=== PATIENT | female | born 2000 | race Caucasian/White ===

== ENCOUNTER → 2022-05-05 11:13 | Outpatient (CLI) | payer OTHER, SELFPAY ==
[2022-05-05 12:40] LABS: Add Manual Diff / Slide Review NO; Basophils Absolute Auto 100 /uL (0-100); Eosinophils Absolute Auto 300 /uL (0-450); Eosinophils Percent Auto 8.8 % (2-4); Hematocrit 36.7 % (36-46); Hemoglobin 12.2 g/dL (12.0-16.0); Lymphocytes Absolute Auto 1000 /uL (1100-4500); Lymphocytes Percent Auto 28.7 % (25-40); Mean Corpuscular HGB Conc 33.3 % (30-36); Mean Corpuscular Hemoglobin 29.1 PG (26-34); Mean Corpuscular Volume 87.5 fL (80-100); Monocytes Absolute Auto 300 /uL (0-900); Monocytes Percent Auto 8.1 % (3-14); Neutrophils Absolute Auto 1800 /uL (1500-7000); Neutrophils Percent Auto 52.4 % (50-75); Platelet Count 246 X10^3/uL (150-400); Red Cell Distribution Width 15.7 % (11.6-14.8); White Blood Cell Count 3.5 X10^3/uL (4.5-11.0)
[2022-05-05 13:00] LABS: Iron 39 ug/dL (37-170)
[2022-05-05 13:31] LABS: Ferritin 6 ng/mL (6-137)
[2022-05-05 13:46] LABS: Vitamin B12 681 pg/mL (239-931)
[2022-05-05 15:12] LABS: Vitamin D 25 Hydroxy (D3) 34.4 ng/mL (30.0-100.0)
== END ==
PROVIDERS: PCP Family Medicine; Referring Provider Family Medicine; Visit Provider Family Medicine
DX: R79.0 Abnormal level of blood mineral (principal)
CPT/HCPCS: 36415; 82306; 82607; 82728; 83540; 85025

== ENCOUNTER → 2022-12-12 10:57 | Outpatient (CLI) | payer OTHER, SELFPAY | PROVIDERS: PCP Family Medicine; Visit Provider Student in an Organized Health Care Education/Training Program | DX: N39.0 Urinary tract infection, site not specified (principal); R30.0 Dysuria | CPT/HCPCS: 87077; 87086; 87186; 87210 ==

== ENCOUNTER → 2023-01-20 15:18 | Outpatient (CLI) | payer OTHER, SELFPAY ==
[2023-01-20 17:45] LABS: Add Manual Diff / Slide Review NO; Basophils Absolute Auto 0 /uL (0-100); Basophils Percent Auto 0.7 % (0-2); Eosinophils Absolute Auto 300 /uL (0-450); Eosinophils Percent Auto 5.3 % (2-4); Hematocrit 37.2 % (36-46); Hemoglobin 12.8 g/dL (12.0-16.0); Lymphocytes Absolute Auto 1300 /uL (1100-4500); Lymphocytes Percent Auto 26.2 % (25-40); Mean Corpuscular HGB Conc 34.4 % (30-36); Mean Corpuscular Hemoglobin 31.7 PG (26-34); Mean Corpuscular Volume 92.1 fL (80-100); Monocytes Absolute Auto 300 /uL (0-900); Monocytes Percent Auto 7.1 % (3-14); Neutrophils Absolute Auto 2900 /uL (1500-7000); Neutrophils Percent Auto 60.7 % (50-75); Platelet Count 221 X10^3/uL (150-400); Red Blood Cell Count 4.03 X10^6/uL (4.0-5.2); Red Cell Distribution Width 12.8 % (11.6-14.8); White Blood Cell Count 4.8 X10^3/uL (4.5-11.0)
[2023-01-20 18:15] LABS: Alanine Aminotransferase 11 IU/L (<35); Albumin 4.1 g/dL (3.5-5.0); Albumin Globulin Ratio 1.4 (1.0-2.8); Alkaline Phosphatase 59 U/L (38-126); Aspartate Aminotransferase 19 IU/L (14-36); BUN Creatinine Ratio 22.6 (6-22); Bilirubin Total 0.6 mg/dL (0.2-1.3); Blood Urea Nitrogen 12 mg/dL (7-17); Calcium 9.7 mg/dL (8.4-10.2); Carbon Dioxide 29 mmol/L (22-32); Chloride 105 mmol/L (98-107); Estimated Glomerular Filt Rate > 60 mL/min (>60); Globulin 2.9 g/dL (1.7-4.1); Glucose 97 mg/dL (70-100); HEMOLYSIS < 15 (0-50); Potassium 3.7 mmol/L (3.4-5.1); Sodium 139 mmol/L (137-145)
[2023-01-20 18:26] LABS: Vitamin D 25 Hydroxy (D3) 29.9 ng/mL (30.0-100.0)
[2023-01-20 18:38] LABS: Thyroid Stimulating Hormone 0.344 uIU/mL (0.47-4.68)
[2023-01-20 18:48] LABS: Ferritin 14 ng/mL (6-137)
[2023-01-20 19:19] LABS: Folate 4.7 ng/mL (2.76-20.0); Vitamin B12 447 pg/mL (239-931)
[2023-01-22 16:16] LABS: Tissue Transglutaminase IgG 4 U/mL (0-5)
[2023-01-23 10:19] LABS: Free T4, Direct Thyroxine 1.26 ng/dL (0.78-2.19)
== END ==
PROVIDERS: PCP Family Medicine; Referring Provider Family Medicine; Visit Provider Family Medicine
DX: Z00.00 Encounter for general adult medical examination without abnormal findings (principal); K90.0 Celiac disease; D50.9 Iron deficiency anemia, unspecified
CPT/HCPCS: 36415; 80053; 82306; 82607; 82728; 82746; 83516; 84439; 84443; 85025

== ENCOUNTER → 2023-10-27 14:55 | Outpatient (CLI) | payer OTHER, SELFPAY ==
[2023-10-27 16:46] LABS: Add Manual Diff / Slide Review NO; Basophils Absolute Auto 0 /uL (0-100); Basophils Percent Auto 0.8 % (0-2); Eosinophils Absolute Auto 200 /uL (0-450); Hematocrit 37.6 % (36-46); Hemoglobin 12.7 g/dL (12.0-16.0); Lymphocytes Absolute Auto 1400 /uL (1100-4500); Mean Corpuscular HGB Conc 33.8 % (30-36); Mean Corpuscular Hemoglobin 30.9 PG (26-34); Mean Corpuscular Volume 91.5 fL (80-100); Monocytes Absolute Auto 400 /uL (0-900); Monocytes Percent Auto 7.1 % (3-14); Neutrophils Absolute Auto 3500 /uL (1500-7000); Neutrophils Percent Auto 63.1 % (50-75); Platelet Count 232 X10^3/uL (150-400); Red Blood Cell Count 4.11 X10^6/uL (4.0-5.2); Red Cell Distribution Width 13.5 % (11.6-14.8); White Blood Cell Count 5.6 X10^3/uL (4.5-11.0)
[2023-10-27 16:53] LABS: Alanine Aminotransferase 11 IU/L (<35); Albumin 4.2 g/dL (3.5-5.0); Albumin Globulin Ratio 1.4 (1.0-2.8); Alkaline Phosphatase 55 U/L (38-126); Aspartate Aminotransferase 26 IU/L (14-36); BUN Creatinine Ratio 16.4 (6-22); Bilirubin Total 0.9 mg/dL (0.2-1.3); Blood Urea Nitrogen 11 mg/dL (7-17); Calcium 10.3 mg/dL (8.4-10.2); Carbon Dioxide 25 mmol/L (22-32); Chloride 104 mmol/L (98-107); Estimated Glomerular Filt Rate > 60 mL/min (>60); Glucose 85 mg/dL (70-100); HEMOLYSIS < 15 (0-50); Potassium 4.3 mmol/L (3.4-5.1); Sodium 135 mmol/L (137-145); Total Protein 7.2 g/dL (6.3-8.2)
[2023-10-27 17:09] LABS: Free T4, Direct Thyroxine 1.05 ng/dL (0.78-2.19)
[2023-10-27 17:23] LABS: Thyroid Stimulating Hormone 0.916 uIU/mL (0.47-4.68)
[2023-10-27 17:25] LABS: Ferritin 8 ng/mL (6-137)
[2023-10-27 17:38] LABS: Vitamin D 25 Hydroxy (D3) 33.3 ng/mL (30.0-100.0)
== END ==
PROVIDERS: PCP Family Medicine; Referring Provider Family Medicine; Visit Provider Family Medicine
DX: R94.6 Abnormal results of thyroid function studies (principal); K90.0 Celiac disease; Z86.2 Personal history of diseases of the blood and blood-forming organs and certain disorders involving the immune mechanism; R11.0 Nausea; E55.9 Vitamin D deficiency, unspecified
CPT/HCPCS: 36415; 80053; 82306; 82728; 84439; 84443; 85025

== ENCOUNTER → 2023-11-08 14:42 | Outpatient (CLI) | payer OTHER, SELFPAY ==
[2023-11-08 16:20] LABS: Urine N gonorrhoeae NOT DETECTED
[2023-11-08 16:25] LABS: Urine Chlamydia NOT DETECTED
== END ==
PROVIDERS: PCP Family Medicine; Visit Provider Registered Nurse
DX: L29.9 Pruritus, unspecified (principal); N94.9 Unspecified condition associated with female genital organs and menstrual cycle; N89.8 Other specified noninflammatory disorders of vagina
CPT/HCPCS: 87210; 87491; 87591

== ENCOUNTER → 2024-10-10 11:00 | Outpatient (CLI) | payer OTHER, SELFPAY ==
[2024-10-10 12:37] LABS: Urine Chlamydia NOT DETECTED; Urine N gonorrhoeae NOT DETECTED
== END ==
PROVIDERS: PCP Family Medicine; Visit Provider Physician Assistant Medical
DX: N93.9 Abnormal uterine and vaginal bleeding, unspecified (principal); N76.0 Acute vaginitis
CPT/HCPCS: 87210; 87491; 87591

== ENCOUNTER → 2025-02-14 12:13 | Outpatient (CLI) | payer OTHER, SELFPAY ==
[2025-02-14 13:16] LABS: Add Manual Diff / Slide Review NO; Basophils Absolute Auto 0 /uL (0-100); Basophils Percent Auto 0.3 % (0-2); Eosinophils Absolute Auto 100 /uL (0-450); Eosinophils Percent Auto 2.3 % (2-4); Hematocrit 39.2 % (36-46); Hemoglobin 13.2 g/dL (12.0-16.0); Lymphocytes Absolute Auto 1500 /uL (1100-4500); Lymphocytes Percent Auto 32.2 % (25-40); Mean Corpuscular HGB Conc 33.7 % (30-36); Mean Corpuscular Hemoglobin 31.3 PG (26-34); Mean Corpuscular Volume 92.8 fL (80-100); Monocytes Absolute Auto 400 /uL (0-900); Monocytes Percent Auto 9.4 % (3-14); Neutrophils Absolute Auto 2600 /uL (1500-7000); Neutrophils Percent Auto 55.8 % (50-75); Platelet Count 224 X10^3/uL (150-400); Red Blood Cell Count 4.22 X10^6/uL (4.0-5.2); Red Cell Distribution Width 13.3 % (11.6-14.8); White Blood Cell Count 4.7 X10^3/uL (4.5-11.0)
[2025-02-14 13:30] LABS: HEMOLYSIS < 15 (0-50); Iron 107 ug/dL (37-170)
[2025-02-14 13:31] LABS: Alanine Aminotransferase 14 IU/L (<35); Albumin 4.4 g/dL (3.5-5.0); Albumin Globulin Ratio 1.7 (1.0-2.8); Alkaline Phosphatase 49 U/L (38-126); Aspartate Aminotransferase 24 IU/L (14-36); BUN Creatinine Ratio 15.3 (6-22); Bilirubin Total 0.8 mg/dL (0.2-1.3); Blood Urea Nitrogen 11 mg/dL (7-17); Calcium 10.6 mg/dL (8.4-10.2); Carbon Dioxide 25 mmol/L (22-32); Chloride 105 mmol/L (98-107); Estimated Glomerular Filt Rate > 60 mL/min (>60); Globulin 2.6 g/dL (1.7-4.1); Glucose 93 mg/dL (70-100); HEMOLYSIS < 15 (0-50); Potassium 4.5 mmol/L (3.4-5.1); Sodium 138 mmol/L (137-145)
[2025-02-14 13:41] LABS: Percent Iron Saturation 33 % (15-50); Total Iron Binding Capacity 324 ug/dL (265-497); Transferrin 246 mg/dL (206-381)
[2025-02-14 14:09] LABS: Ferritin 12 ng/mL (6-137)
[2025-02-14 14:41] LABS: Vitamin B12 487 pg/mL (239-931)
== END ==
PROVIDERS: PCP Student in an Organized Health Care Education/Training Program; Referring Provider Student in an Organized Health Care Education/Training Program; Visit Provider Student in an Organized Health Care Education/Training Program
DX: K90.0 Celiac disease (principal); Z13.29 Encounter for screening for other suspected endocrine disorder
CPT/HCPCS: 36415; 80053; 82306; 82607; 82728; 82746; 83540; 83550; 84443; 85025

== ENCOUNTER → 2025-04-25 08:16 | Outpatient (CLI) | payer OTHER, SELFPAY ==
--- NOTE | 2025-04-25 08:18 | DI.US.S_ITS ---
US breast BI limited: 04/25/2025. BI-RADS: 3 CLINICAL: 25-year old female for bilateral diagnostic breast ultrasound. Tyrer- Cuzick lifetime risk of 13.6%. No personal or first-degree family history of breast cancer. The patient reports a palpable abnormality (more than 2 years) in both breasts. The patient had a prior left breast biopsy. PRIOR EXAMS No prior examinations available. ULTRASOUND TECHNIQUE Real-time keita scale and color doppler imaging of the area of clinical interest was performed with image documentation. ULTRASOUND FINDINGS Right: Outer at 9:00, 4 cm from nipple, measuring 1 x 0.9 x 1.1 cm: Correlating with palpable lump there is an oval, circumscribed, hypoechoic mass that is parallel showing posterior acoustic enhancement. This is likely a fibroadenoma. Right: Upper Outer at 10:00, 8.0 cm from nipple, measuring 1.5 x 0.9 x 0.5 cm: Correlating with palpable lump there is an oval, circumscribed, hypoechoic mass that is parallel showing posterior acoustic enhancement. This is likely a fibroadenoma. Left: Outer at 3:00, 8 cm from nipple, measuring 0.4 x 0.4 x 0.4 cm: Correlating with palpable lump there is a complicated cyst showing posterior acoustic enhancement. Left: Inner at 9:00, 4 cm from nipple, measuring 1 x 0.6 x 1.1 cm: Correlating with palpable lump there is an oval, circumscribed, hypoechoic mass that is parallel showing posterior acoustic enhancement. This is likely a fibroadenoma. Left: Upper Inner at 10:00, 7 cm from nipple, measuring 1.7 x 0.6 x 1.2 cm: Correlating with palpable lump there is an oval, circumscribed, hypoechoic mass that is parallel showing posterior acoustic enhancement. This is likely a fibroadenoma. Left: Lower Outer at 4:00, 8.0 cm from nipple, measuring 0.2 x 0.5 x 1.2 cm: There is an oval, circumscribed, hypoechoic mass showing posterior acoustic enhancement. 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 Biopsy clip is seen with the mass. IMPRESSION: Right (Mass): Outer at 9:00, 4 cm from nipple, measuring 1 x 0.9 x 1.1 cm * Probably Benign. Right (Mass): Upper Outer at 10:00, 8.0 cm from nipple, measuring 1.5 x 0.9 x 0.5 cm * Probably Benign. Left (Complicated Cyst): Outer at 3:00, 8 cm from nipple, measuring 0.4 x 0.4 x 0.4 cm * Probably Benign. Left (Mass): Inner at 9:00, 4 cm from nipple, measuring 1 x 0.6 x 1.1 cm * Probably Benign. Left (Mass): Upper Inner at 10:00, 7 cm from nipple, measuring 1.7 x 0.6 x 1.2 cm * Probably Benign. RECOMMENDATIONS Bilateral * Six month followup with diagnostic ultrasound. COMMENTS: Findings and recommendations were conveyed to the patient during today's evaluation. OVERALL ASSESSMENT CATEGORY BI-RADS-3: Probably Benign. ELECTRONICALLY SIGNED: Beatriz Weiner M.D. on 04/25/2025 at 05:05:18 PM PT Interpreting Station ID: [id number]
== END ==
PROVIDERS: PCP Student in an Organized Health Care Education/Training Program; Referring Provider Student in an Organized Health Care Education/Training Program; Visit Provider Student in an Organized Health Care Education/Training Program
DX: R92.8 Other abnormal and inconclusive findings on diagnostic imaging of breast (principal); D24.9 Benign neoplasm of unspecified breast; N63.11 Unspecified lump in the right breast, upper outer quadrant; N63.22 Unspecified lump in the left breast, upper inner quadrant; N60.02 Solitary cyst of left breast
CPT/HCPCS: 76642

== ENCOUNTER 2025-10-10 11:22 | Emergency (ER) | payer OTHER, SELFPAY ==
[2025-10-10 11:30] VITALS: BP 131/86; PULSE 62; RESP 12; TEMP 36.4; O2SAT 99; BMI 18.8
[2025-10-10] MEDS: FAMOTIDINE 20 MG TABLET 40 MG PO (11:38)
[2025-10-10] MEDS: ONDANSETRON 4 MG ODT SL (11:38)
[2025-10-10] MEDS: MAG HYDROX/ALUMINUM/SIMETH SUS 30 ML, LIDOCAINE VISCOUS 2% 15 ML PO (11:40)
[2025-10-10 13:38] VITALS: BP 111/80; PULSE 53; RESP 16; O2SAT 100
--- NOTE | 2025-10-10 13:55 | ED_ITS ---
HPI - Nausea/Vomiting/Diarrhea <Man Coker PA-C - Last Filed: 10/17/25 19:45> General Chief complaint: Nausea/Vomiting/Diarrhea Stated complaint: Anxiety, Not really eating , Dizzy Time Seen by Provider: 10/10/25 11:29 Source: patient Mode of arrival: Ambulatory History of Present Illness HPI Narrative: 25-year-old female with past medical history celiac disease presents to the ED with extreme loss of appetite, nausea for the past 5 days. Patient states that she has had such episodes prior to this where she experiences complete loss of appetite, however it has not been as long as 5 days. Patient has some anxiety around gluten containing foods due to her celiac diagnosis. She avoids such foods. Patient does endorse some mild stresses at work. It appears that patient does have a history of anxiety, for which she has not been medically evaluated yet. Patient states that she does not like the idea of having to take medications for depression or anxiety, which is why she avoids medical consultation. Patient denies having any concerns about her weight, is not actively trying to lose weight. No suicidal ideation, homicidal ideation. Related Data Home Medications ?Medication ?Instructions ?Recorded ?Confirmed No Known Home Medications 04/07/25 0508/24 Allergies Allergy/AdvReac Type Severity Reaction Status Date / Time Sulfa (Sulfonamide Allergy Intermediate Hives Verified 04/07/25 16:55 Antibiotics) Review of Systems <Man Coker PA-C - Last Filed: 10/17/25 19:45> Constitutional Constitutional: Denies chills, Denies fatigue, Denies fever(s), Denies frequent falls, Denies lethargy, Reports poor appetite and Denies weakness Eyes Eyes: Denies change in vision, Denies eye discharge, Denies irritation and Denies loss of vision ENT Ears, Nose, Mouth, and Throat: Denies change in voice, Denies dizziness, Denies neck pain, Denies sore throat and Denies throat swelling Cardiovascular Cardiovascular: Denies chest pain, Denies irregular heart rhythm, Reports lightheadedness, Denies palpitations, Denies dyspnea, Denies dyspnea on exertion and Denies orthopnea Respiratory Respiratory: Denies cough, Denies dyspnea, Denies dyspnea on exertion and Denies wheezing Gastrointestinal Gastrointestinal: Denies abdominal pain, Denies change in bowel habits, Denies diarrhea, Reports nausea and Denies vomiting Musculoskeletal Musculoskeletal: Denies neck pain and Denies numbness Integumentary/Breasts Skin/Breast: Denies pruritus, Denies erythema, Denies rash and Denies wounds Neurologic Neurologic: Denies behavioral changes, Denies confusion, Denies dizziness, Denies frequent falls, Denies loss of vision, Denies numbness and Denies weakness Psychiatric Psychiatric: Denies anxiety, Denies behavioral changes, Denies confusion, Denies depression, Denies homicidal ideation and Denies suicidal ideation Endocrine Endocrine: Denies fatigue, Denies flushing and Denies palpitations Hematologic/Lymphatic Hematologic/Lymphatic: Denies easy bruising Allergic/Immunologic Allergic/Immunologic: Denies urticaria, Denies throat swelling and Denies wheezing Patient History <Man Coker PA-C - Last Filed: 10/17/25 19:45> Social History marital status: unmarried,single household members: none lives independently: Yes occupational status: employed alcohol intake: current substance use type: does not use Smoking Status: Never smoker Exam <Man Coker PA-C - Last Filed: 10/17/25 19:45> Narrative Exam Narrative: Const General:?cooperative, healthy appearing and comfortable [facility] Head:?normal to inspection Ears:?hearing grossly normal bilaterally Nose:?external nose normal Face and sinus:?normal facial exam and sinuses nontender Mouth:?oral mucosae normal Throat:?posterior oropharynx normal Eyes General:?appearance normal, both eyes and all related structures Neck Neck:?normal visual inspection and no lymphadenopathy noted Resp Effort & Inspection:?normal respiratory effort Auscultation:?clear to auscultation bilaterally Cardio Rate:?regular rate Rhythm:?regular rhythm GI Abdomen is soft, nondistended, nontender to palpation. No CVA tenderness. Neuro General:?patient alert, patient awake and patient oriented x3 Initial Vital Signs Initial Vital Signs: Vital Signs Temperature 97.5 F L 10/10/25 11:30 Pulse Rate 62 10/10/25 11:30 Respiratory Rate 12 10/10/25 11:30 Blood Pressure 131/86 10/10/25 11:30 Pulse Oximetry 99 10/10/25 11:30 Oxygen Delivery Method Room Air 10/10/25 11:30 <Jay Hackett MD - Last Filed: 10/19/25 08:54> Initial Vital Signs Initial Vital Signs: Vital Signs Temperature 97.5 F L 10/10/25 11:30 Pulse Rate 62 10/10/25 11:30 Respiratory Rate 12 10/10/25 11:30 Blood Pressure 131/86 10/10/25 11:30 Pulse Oximetry 99 10/10/25 11:30 Oxygen Delivery Method Room Air 10/10/25 11:30 Course <Man Coker PA-C - Last Filed: 10/17/25 19:45> Orders Ordered: Discontinued Medications Al Hydrox/Mg Hydrox/Simethicone 30 ml/ Lidocaine HCl 15 ml 0 ml PO NOW ONE Stop: 10/10/25 11:31 Last Admin: 10/10/25 11:40 Dose: 45 ml Documented By: ELENA Famotidine (Famotidine 20 Mg Tablet) 40 mg PO NOW ONE Stop: 10/10/25 11:31 Last Admin: 10/10/25 11:38 Dose: 40 mg Documented By: ELENA Ondansetron HCl (Ondansetron 4 Mg Odt) 4 mg SL NOW ONE Stop: 10/10/25 11:30 Last Admin: 10/10/25 11:38 Dose: 4 mg Documented By: ELENA Vital Signs Vital signs: Vital Signs - 8 hr 10/10/25 11:30 10/10/25 13:38 Temperature 97.5 F L Pulse Rate 62 53 L Respiratory Rate 12 16 Blood Pressure 131/86 111/80 Pulse Oximetry 99 100 Oxygen Delivery Method Room Air Room Air <Jay Hackett MD - Last Filed: 10/19/25 08:54> Orders Ordered: Discontinued Medications Al Hydrox/Mg Hydrox/Simethicone 30 ml/ Lidocaine HCl 15 ml 0 ml PO NOW ONE Stop: 10/10/25 11:31 Last Admin: 10/10/25 11:40 Dose: 45 ml Documented By: ELENA Famotidine (Famotidine 20 Mg Tablet) 40 mg PO NOW ONE Stop: 10/10/25 11:31 Last Admin: 10/10/25 11:38 Dose: 40 mg Documented By: ELENA Ondansetron HCl (Ondansetron 4 Mg Odt) 4 mg SL NOW ONE Stop: 10/10/25 11:30 Last Admin: 10/10/25 11:38 Dose: 4 mg Documented By: [facility] Vital Signs Vital signs: Vital Signs - 8 hr 10/10/25 11:30 10/10/25 13:38 Temperature 97.5 F L Pulse Rate 62 53 L Respiratory Rate 12 16 Blood Pressure 131/86 111/80 Pulse Oximetry 99 100 Oxygen Delivery Method Room Air Room Air MDM - Nausea/Vomiting/Diarrhea <Man Coker PA-C - Last Filed: 10/17/25 19:45> Lab Data 10/10/25 14:25 10/10/25 14:25 Labs: Lab Results 10/10/25 10/10/25 Range/Units 14:25 15:40 WBC 4.8 (4.5-11.0) X10^3/uL RBC 4.47 (4.0-5.2) X10^6/uL Hgb 13.9 (12.0-16.0) g/dL Hct 40.8 (36-46) % MCV 91.2 (80-100) fL MCH 31.2 (26-34) PG MCHC 34.2 (30-36) % RDW 13.2 (11.6-14.8) % Plt Count 236 (150-400) X10^3/uL Neut % (Auto) 59.8 (50-75) % Lymph % (Auto) 31.7 (25-40) % [place] % (Auto) 7.4 (3-14) % Eos % (Auto) 0.4 L (2-4) % Baso % (Auto) 0.7 (0-2) % Neut # (Auto) 2900 (3722-2238) /uL Lymph # (Auto) 1500 (4785-1820) /uL [place] # (Auto) 400 (0-900) /uL Eos # (Auto) 0 (0-450) /uL Baso # (Auto) 0 (0-100) /uL Sodium 138 (137-145) mmol/L Potassium 4.0 (3.4-5.1) mmol/L Chloride 102 (98-107) mmol/L Carbon Dioxide 25 (22-32) mmol/L BUN 13 (7-17) mg/dL Creatinine 0.77 (0.52-1.04) mg/dL Estimated GFR > 60 (>60) mL/min BUN/Creatinine Ratio 16.9 (6-22) Glucose 90 (70-99) mg/dL Calcium 10.4 H (8.4-10.2) mg/dL Phosphorus 2.3 L (2.5-4.5) mg/dL Magnesium 1.9 (1.6-2.3) mg/dL Total Bilirubin 0.8 (0.2-1.3) mg/dL AST 23 (14-36) IU/L ALT 12 (<35) IU/L Alkaline Phosphatase 57 (38-126) U/L Total Protein 8.0 (6.3-8.2) g/dL Albumin 4.8 (3.5-5.0) g/dL Globulin 3.2 (1.7-4.1) g/dL Albumin/Globulin Ratio 1.5 (1.0-2.8) Lipase 27 (23-300) U/L Urine RBC 0-1/hpf (0-5/HPF) Urine WBC 0-1/hpf (0-5/HPF) Ur Squamous Epith Cells 1-5 /hpf (0-5/HPF) Urine Bacteria Occasional (0-1) (None) Urine Mucus 1+ H (Negative) Ur Culture Indicated? Cult not indicated Vol Urine Centrifuged 10ml (spun) Point of Care Testing Test Results Negative Urine Dip Bedside Urine Glucose Negative Bedside Urine Bilirubin - Negative Bedside Urine Ketone + 15 Urine Specific [place] 1.025 Bedside Urine Occult Blood + Bedside Urine pH 6.0 Bedside Urine Protein +/- 15 Bedside Urine Urobilinogen - Negative Bedside Urine Nitrite - Negative Bedside Urine Leukocytes - Negative Esterase MDM Narrative Medical decision making narrative: 25-year-old female with past medical history celiac disease presents to the ED with extreme loss of appetite, nausea for the past 5 days. Physical exam is reassuring for a benign abdomen. Obtain some labs. Phosphorus is mildly low at 2.3. All other labs within normal limits. Urine negative for , infection. Counseled patient on anxiety, depression and the importance of getting it medically evaluated and treated. Also discussed that she could benefit from at least some mental counseling for starters. Recommend follow-up with PCP as soon as possible. ED return precautions discussed with patient. Patient verbalized understanding. Medical records reviewed: Yes <Jay Hackett MD - Last Filed: 10/19/25 08:54> Lab Data Labs: Lab Results 10/10/25 10/10/25 Range/Units 14:25 15:40 WBC 4.8 (4.5-11.0) X10^3/uL RBC 4.47 (4.0-5.2) X10^6/uL Hgb 13.9 (12.0-16.0) g/dL Hct 40.8 (36-46) % MCV 91.2 (80-100) fL MCH 31.2 (26-34) PG MCHC 34.2 (30-36) % RDW 13.2 (11.6-14.8) % Plt Count 236 (150-400) X10^3/uL Neut % (Auto) 59.8 (50-75) % Lymph % (Auto) 31.7 (25-40) % [place] % (Auto) 7.4 (3-14) % Eos % (Auto) 0.4 L (2-4) % Baso % (Auto) 0.7 (0-2) % Neut # (Auto) 2900 (3012-4170) /uL Lymph # (Auto) 1500 (1235-7209) /uL [place] # (Auto) 400 (0-900) /uL Eos # (Auto) 0 (0-450) /uL Baso # (Auto) 0 (0-100) /uL Sodium 138 (137-145) mmol/L Potassium 4.0 (3.4-5.1) mmol/L Chloride 102 (98-107) mmol/L Carbon Dioxide 25 (22-32) mmol/L BUN 13 (7-17) mg/dL Creatinine 0.77 (0.52-1.04) mg/dL Estimated GFR > 60 (>60) mL/min BUN/Creatinine Ratio 16.9 (6-22) Glucose 90 (70-99) mg/dL Calcium 10.4 H (8.4-10.2) mg/dL Phosphorus 2.3 L (2.5-4.5) mg/dL Magnesium 1.9 (1.6-2.3) mg/dL Total Bilirubin 0.8 (0.2-1.3) mg/dL AST 23 (14-36) IU/L ALT 12 (<35) IU/L Alkaline Phosphatase 57 (38-126) U/L Total Protein 8.0 (6.3-8.2) g/dL Albumin 4.8 (3.5-5.0) g/dL Globulin 3.2 (1.7-4.1) g/dL Albumin/Globulin Ratio 1.5 (1.0-2.8) Lipase 27 (23-300) U/L Urine RBC 0-1/hpf (0-5/HPF) Urine WBC 0-1/hpf (0-5/HPF) Ur Squamous Epith Cells 1-5 /hpf (0-5/HPF) Urine Bacteria Occasional (0-1) (None) Urine Mucus 1+ H (Negative) Ur Culture Indicated? Cult not indicated Vol Urine Centrifuged 10ml (spun) Point of Care Testing Test Results Negative Urine Dip Bedside Urine Glucose Negative Bedside Urine Bilirubin - Negative Bedside Urine Ketone + 15 Urine Specific [place] 1.025 Bedside Urine Occult Blood + Bedside Urine pH 6.0 Bedside Urine Protein +/- 15 Bedside Urine Urobilinogen - Negative Bedside Urine Nitrite - Negative Bedside Urine Leukocytes - Negative Esterase Discharge Plan Departure Patient Disposition: Home Clinical Impression: Appetite loss Instructions: DI for Poor Appetite Activity Restrictions/Additional Instructions: You were evaluated in the emergency department today for a poor appetite. You were given nausea and acid reflux medication. You have been able to keep down water. There were no significant abnormalities detected in your labs. It is recommended that you follow-up with your PCP as soon as possible for further evaluation. It is also recommended that you follow-up with a psychiatrist or mental health therapist to address anxiety. Return to the ED if you have worsening symptoms, or unable to keep down any food or water, have any thoughts of hurting yourself or others. Prescriptions: No Action No Known Home Medications Referrals: Yen Elizabeth MD [Primary Care Provider, Family Practice] Stand Alone Forms: Patient Portal/API ED Sign-out <Jay Hackett MD - Last Filed: 10/19/25 08:54> Cosign ED Attending Cosignature Attestation: I was immediately available in the department for consultation. This documentation has been reviewed and I agree with assessment and plan. Supervised by Jay Hackett MD
[2025-10-10 14:37] LABS: Add Manual Diff / Slide Review NO; Hematocrit 40.8 % (36-46); Hemoglobin 13.9 g/dL (12.0-16.0); Lymphocytes Absolute Auto 1500 /uL (1100-4500); Mean Corpuscular HGB Conc 34.2 % (30-36); Mean Corpuscular Hemoglobin 31.2 PG (26-34); Mean Corpuscular Volume 91.2 fL (80-100); Platelet Count 236 X10^3/uL (150-400)
[2025-10-10 14:49] LABS: Alanine Aminotransferase 12 IU/L (<35); Albumin 4.8 g/dL (3.5-5.0); Albumin Globulin Ratio 1.5 (1.0-2.8); Alkaline Phosphatase 57 U/L (38-126); Blood Urea Nitrogen 13 mg/dL (7-17); Calcium 10.4 mg/dL (8.4-10.2); Carbon Dioxide 25 mmol/L (22-32); Chloride 102 mmol/L (98-107); Estimated Glomerular Filt Rate > 60 mL/min (>60); Globulin 3.2 g/dL (1.7-4.1); Glucose 90 mg/dL (70-99); HEMOLYSIS < 15 (0-50); Lipase 27 U/L (23-300); Magnesium 1.9 mg/dL (1.6-2.3); Phosphorous 2.3 mg/dL (2.5-4.5); Potassium 4.0 mmol/L (3.4-5.1); Sodium 138 mmol/L (137-145); Total Protein 8.0 g/dL (6.3-8.2)
[2025-10-10 15:44] VITALS: BP 115/80; PULSE 87; RESP 18; O2SAT 98
[2025-10-10 16:14] LABS: Culture Indicated Urine Cult Not Indicated
== END 2025-10-10 15:51 | disposition home or self-care (01) ==
PROVIDERS: Emergency Provider Student in an Organized Health Care Education/Training Program; PCP Student in an Organized Health Care Education/Training Program
DX: R63.0 Anorexia (principal); K90.0 Celiac disease
CPT/HCPCS: 80053; 81003; 81015; 81025; 83690; 83735; 84100; 85025; 87086; 99283; A9270